=== PATIENT | male | born 1980 | race American Indian/Alaskan Native ===

== ENCOUNTER 2020-03-03 02:41 | Observation (INO) | payer OTHER ==
[2020-03-03] MEDS ORDERED: ASPIRIN 325 MG TAB PO ONE (02:53)
[2020-03-03 03:34] LABS: Basophils # (Auto) 0.1 K/mm3 (0.0-0.1); Basophils % (Auto) 1.4 % (0.0-1.8); Eosinophils # (Auto) 0.2 K/mm3 (0.0-0.4); Eosinophils % (Auto) 2.2 % (0.0-4.3); Hemoglobin 15.7 gm/dl (11.8-15.2); Lymphocytes # (Auto) 3.9 K/mm3 (1.2-5.4); Lymphocytes % (Auto) 44.1 % (13.4-35.0); Mean Corpuscular HGB Conc 33 % (32-34); Mean Corpuscular Volume 91 fl (84-94); Monocytes # (Auto) 0.9 K/mm3 (0.0-0.8); Monocytes % (Auto) 10.6 % (0.0-7.3); Platelet Count 333 K/mm3 (140-440); Red Blood Count 5.14 M/mm3 (3.65-5.03); Red Cell Distribution Width 12.8 % (13.2-15.2)
--- NOTE | 2020-03-03 03:36 | XRay Report ---
CHEST 2 VIEWS INDICATION / CLINICAL INFORMATION: MAIN: Chest Pain; SOB X 3 DAYS. COMPARISON: None available. FINDINGS: SUPPORT DEVICES: None. HEART / MEDIASTINUM: No significant abnormality. LUNGS / PLEURA: There is mild bilateral interstitial prominence. The appearance is most suggestive fo r some mild interstitial pulmonary edema. No focal area of consolidation within either lung. No large pleural effusion. No pneumothorax. ADDITIONAL FINDINGS: No significant additional findings. IMPRESSION: 1. Mild interstitial prominence most likely interstitial pulmonary edema. Please correlate clinically . Signer Name: Marcelle Iyer MD Signed: 03/03/2020 3:32 AM Workstation Name: [id number]
[2020-03-03 03:54] LABS: BUN/Creatinine Ratio 17; Blood Urea Nitrogen 22 mg/dL (9-20); Hemolysis Index 37
[2020-03-03] MEDS ORDERED: BENZONATATE 100 MG CAP PO ONE (07:44)
[2020-03-03] MEDS ORDERED: ASPIRIN 325 MG TAB ONE (07:48)
[2020-03-03] MEDS ORDERED: predniSONE 20 MG TAB PO ONE (07:55)
[2020-03-03] MEDS ORDERED: IPRATROPIUM/ALBUTEROL SULFATE 3 ML AMPUL.NEB IH ONE (07:55)
--- NOTE | 2020-03-03 08:54 | Emergency Department Report ---
ED Chest Pain HPI - General Chief Complaint: Chest Pain Stated Complaint: CHEST PAIN Time Seen by Provider: 03/03/20 07:37 Source: patient Mode of arrival: Ambulatory Limitations: No Limitations - History of Present Illness Initial Comments: This is a 39-year-old male nontoxic, well nourished in appearance, no acute signs of distress presents to the ED with c/o of chest pain, shortness of breathe, and cough. Patient describes productive cough as mucus production. Patient denies any sick contacts. Patient denies any recent travels, long car, recent hospital stays. Patient denies any calf pain or calf tenderness. Patient denies any radiation of pain. Patient denies any other upper respiratory symptoms. Patient denies any hemoptysis, fever, chills, nausea, vomiting, headache, stiff neck, numbness, tingling, abdominal pain. Patient denies pleuritic chest pain. Patient denies any recent surgeries or any sick contacts. Patient denies any drug allergies or significant PMH. MD Complaint: chest pain -: days(s) Pain Location: other (midsternum) Pain Radiation: none Severity: mild Severity scale (0 -10): 3 Quality: aching Consistency: constant Improves With: nothing Worsens With: nothing re: denies: nausea, vomting, diaphoresis, dyspnea, sense of impending doom Other Symptoms: cough. denies: fever, syncope, rash, acid taste in mouth, leg swelling, palpitations, burping Treatments Prior to Arrival: none Aspirin use within the Past 7 Days: (0) No - Related Data Allergies Allergy/AdvReac Type Severity Reaction Status Date / Time No Known Allergies Allergy Unverified 03/03/20 02:51 Heart Score - HEART Score History: Slightly suspicious EKG: Normal Age: < 45 Risk factors: No known risk factors Troponin: < normal limit HEART Score: 0 ED Review of Systems ROS: Stated complaint: CHEST PAIN Other details as noted in HPI Constitutional: denies: chills, fever Eyes: denies: eye pain, eye discharge, vision change ENT: congestion. denies: ear pain, throat pain Respiratory: cough, shortness of breath. denies: wheezing Cardiovascular: chest pain. denies: palpitations Endocrine: no symptoms reported Gastrointestinal: denies: abdominal pain, nausea, diarrhea Genitourinary: denies: urgency, dysuria Musculoskeletal: denies: back pain, joint swelling, arthralgia Skin: denies: rash, lesions Neurological: denies: headache, weakness, paresthesias Psychiatric: denies: anxiety, depression Hematological/Lymphatic: denies: easy bleeding, easy bruising ED Past Medical Hx - Surgical History Past Surgical History?: Yes Additional Surgical History: Willie HIP - Social History Smoking Status: Never Smoker Substance Use Type: None ED Physical Exam - General Limitations: No Limitations General appearance: alert, in no apparent distress - Head Head exam: Present: atraumatic, normocephalic - Eye Eye exam: Present: normal appearance - ENT ENT exam: Present: normal exam, normal orophraynx - Neck Neck exam: Present: normal inspection, full ROM. Absent: tenderness, meningismus, lymphadenopathy - Respiratory Respiratory exam: Present: other (crackles willie lobes). Absent: respiratory distress, wheezes, rales, rhonchi, stridor, chest wall tenderness, accessory muscle use, decreased breath sounds, prolonged expiratory - Cardiovascular Cardiovascular Exam: Present: regular rate, normal rhythm, tachycardia, normal heart sounds. Absent: irregular rhythm, systolic murmur, diastolic murmur, rubs, gallop - Extremities Exam Extremities exam: Present: normal inspection, full ROM - Back Exam Back exam: Present: normal inspection, full ROM - Neurological Exam Neurological exam: Present: alert, oriented X3, normal gait - Psychiatric Psychiatric exam: Present: normal affect, normal mood - Skin Skin exam: Present: warm, dry, intact, normal color. Absent: rash ED Course Vital Signs 03/03/20 02:46 Temperature 98.1 F Pulse Rate 103 H Respiratory 20 Rate Blood Pressure 132/94 O2 Sat by Pulse 94 Oximetry - Reevaluation(s) Reevaluation #1: 03/03/20 08:53 Patient is speaking in full sentences with no signs of distress noted. - Consultations Consultation #1: 03/03/20 09:08 Patient has been consulted with Dr. Llamas about patient history, physical exam, and labs/imagine studies and agrees for admission for acute CHF. RAINE score - Raine Score Age > 65: (0) No Aspirin use within the Past 7 Days: (0) No 3 or more CAD Risk Factors: (0) No 2 or more Angina events in past 24 hrs: (0) No Known CAD with more than 50% Stenosis: (0) No Elevated Cardiac Markers: (0) No ST Deviation Greater than 0.5mm: (0) No RAINE Score: 0 ED Medical Decision Making - Lab Data Result diagrams: 03/03/20 03:20 03/03/20 03:20 - EKG Data 03/03/20 09:13 Signed by . EKG shows sinus tachycardia 103 with multiple premature complex and left anterior enlargement. Otherwise no significant ST abnormalities. - Medical Decision Making This is a 39-year-old male that presents with acute CHF. Patient is currently stable and was examined by me. Patient was consulted with Dr. Llamas and agrees to admission. Patient is admitted with hospitalist Dr. Graf. Chest x- ray does show bilateral pulmonary edema. BNP is elevated. Otherwise labs are unremarkable. Patient is admitted for further evaluation and treatment. At time of admission, the patient does not seem toxic or ill in appearance. No acute signs of distress noted. Patient agrees to admission treatment plan of care. No further questions noted by the patient. Critical care attestation.: If time is entered above; I have spent that time in minutes in the direct care of this critically ill patient, excluding procedure time. ED Disposition Clinical Impression: Shortness of breath Acute CHF Qualifiers: Heart failure type: unspecified Qualified Code(s): I50.9 - Heart failure, unspecified Chest pain Qualifiers: Chest pain type: unspecified Qualified Code(s): R07.9 - Chest pain, unspecified Disposition: OP ADMIT IP TO THIS HOSP Is pt being admited?: Yes Condition: Stable Referrals: PRIMARY CARE, [Primary Care Provider] - 3-5 Days
[2020-03-03] MEDS ORDERED: FUROSEMIDE 40 MG/4 ML INJ IV ONE (11:33)
[2020-03-03] MEDS ORDERED: FUROSEMIDE 40 MG/4 ML INJ ONE (12:13)
[2020-03-03] MEDS ORDERED: diphenhydrAMINE 50 MG CAP PO PRN (23:49)
[2020-03-03] MEDS ORDERED: ACETAMINOPHEN 325 MG TAB PO PRN (23:50)
[2020-03-03] MEDS ORDERED: oxyCODONE /ACETAMINOPHEN 5-325MG TAB PO PRN (23:50)
[2020-03-03] MEDS ORDERED: METOCLOPRAMIDE 10 MG/2 ML INJ IV PRN (23:50)
[2020-03-03] MEDS ORDERED: ONDANSETRON 4 MG/2 ML INJ IV PRN (23:50)
[2020-03-03] MEDS ORDERED: HYDROmorphone 1 MG/1 ML INJ IV PRN (23:50)
[2020-03-04] MEDS: POTASSIUM CHLORIDE ER 20 MEQ TAB PO SCH ×2 (00:59→14:04)
[2020-03-04 04:51] LABS: Basophils # (Auto) 0.1 K/mm3 (0.0-0.1); Eosinophils % (Auto) 0.3 % (0.0-4.3); Monocytes # (Auto) 1.4 K/mm3 (0.0-0.8); Monocytes % (Auto) 12.3 % (0.0-7.3)
[2020-03-04 05:06] LABS: Basophils % (Auto) 0.6 % (0.0-1.8); Hematocrit 46.1 % (35.5-45.6); Hemoglobin 15.3 gm/dl (11.8-15.2); Lymphocytes # (Auto) 2.9 K/mm3 (1.2-5.4); Lymphocytes % (Auto) 24.7 % (13.4-35.0); Mean Corpuscular HGB Conc 33 % (32-34); Mean Corpuscular Volume 91 fl (84-94); Platelet Count 344 K/mm3 (140-440)
[2020-03-04 05:18] LABS: Alanine Aminotransferase 49 units/L (7-56); BUN/Creatinine Ratio 14; Blood Urea Nitrogen 18 mg/dL (9-20); Calcium 9.4 mg/dL (8.4-10.2); Hemolysis Index 8
[2020-03-04] MEDS: FUROSEMIDE 40 MG/4 ML INJ IV SCH ×2 (06:12→16:58)
[2020-03-04] MEDS ORDERED: REGADENOSON 0.4 MG/5 ML INJ IV ONE (09:00)
[2020-03-04] MEDS ORDERED: allopurinoL 100 MG TAB PO SCH (10:00)
[2020-03-04] MEDS ORDERED: FAMOTIDINE 20 MG TAB PO SCH (10:00)
--- NOTE | 2020-03-04 10:09 | Event Note ---
Date: 03/03/20 See H/p in reports Chest pain R/o [place] CHF
--- NOTE | 2020-03-04 10:34 | History and Physical Report ---
CHIEF COMPLAINT: Chest pain for 1 day. HISTORY OF PRESENT ILLNESS: A 39-year-old male with history of hypertension, comes in for left-sided chest pain and retrosternal chest pain. Also, he has some difficulty in breathing. Also, cough productive of mucoid sputum. No fever or chills. No recent exposure. Chest pain is not associated with any diaphoresis or palpitations. No exacerbating or relieving factors. Chest pain is about 5 on a scale of 1-10. No recent cardiac cath or a stress test. PAST MEDICAL HISTORY: hypertension. PAST SURGICAL HISTORY: Bilateral hip surgeries. SOCIAL HISTORY: Does not smoke. FAMILY HISTORY: Hypertension. REVIEW OF SYSTEMS: Significant for chest pain and shortness of breath. PHYSICAL EXAMINATION: GENERAL: Young male, cooperative during examination. VITAL SIGNS: Blood pressure is 147/95, temperature is 98, pulse is 101, respirations are 26. HEENT: Unremarkable. Pupils equal and reactive. NECK: Supple, no lymphadenopathy, no thyromegaly. LUNGS: Clear to auscultation and percussion. Good air entry. CARDIOVASCULAR: S1, S2 heard. No gallop, no murmur, no rub. Apical impulse in left fifth intercostal space and midclavicular line. ABDOMEN: Soft and benign. No hepatosplenomegaly, no guarding, no rigidity. Hernial orifices are normal. EXTREMITIES: Good pedal pulses. No pedal edema. CENTRAL NERVOUS SYSTEM: Alert and oriented x 4, nonfocal exam. LABORATORY DATA: Significant for white count of 8,800, H and H is 15.7 and 47.0, BUN is 23, creatinine is 1.3. BNP is 1998. EKG shows sinus tachycardia, heart rate of 108. Chest x-ray shows mild interstitial prominence, most likely interstitial pulmonary edema. ASSESSMENT AND PLAN: 1. Chest pain, rule out myocardial infarction protocol. Serial troponins and stress test. 2. Congestive heart failure exacerbation, new onset congestive heart failure. We will get echocardiogram for ejection fraction. IV Lasix in the meantime. 3. Hypertension. Continue antihypertensives. 4. Deep venous thrombosis prophylaxis, heparin 5000 q. 12. 5. Morbid obesity: Patient counseled about bariatric surgery and losing weight. Patient to follow with outpatient [id number] JOB# [id number] [facility]
[2020-03-04] MEDS ORDERED: PNEUMOCOCCAL 23 Valent 0.5 ML VIAL IM ONE (12:00)
[2020-03-04] MEDS ORDERED: FLU VACC QUAD 2019-20 (3 YR UP)/PF 60 MCG/0.5 ML SYRINGE IM ONE (12:00)
[2020-03-04 15:47] VITALS: BP 101/69
--- NOTE | 2020-03-04 18:00 | Discharge Summary ---
Providers - Providers Date of Admission: 03/03/20 11:32 Date of discharge: 03/04/20 Attending physician: JOSE M Lui Primary care physician: NETEZZA ARCHITECT Hospitalization Condition: Stable Pertinent studies: Stress test was negative. Echocardiogram showed 40% ejection fraction. Hospital course: Patient was admitted for chest pain and CHF exacerbation Patient did well with Lasix and potassium. Patient had good urinary output. Patient had echocardiogram which showed 40 to 40% of ejection fraction. Patient had a stress test which was negative for ischemia. Patient had uneventful course. Patient being discharged on Lasix 40 mg p.o. daily Potassium 20 mg p.o. daily and to follow-up with [facility]. Patient also has morbid obesity and was counseled. Patient to follow-up with Dr. Pierson the bariatric surgeon. Disposition: DC- TO HOME OR SELFCARE Time spent for discharge: 35 minutes. Core Measure Documentation - Palliative Care Palliative Care/ Comfort Measures: Not Applicable - Core Measures Any of the following diagnoses?: heart failure - Heart Failure Discharge Requirements ELIS/ARB for LVSD if EF <40%: Yes Beta ada at discharge: Yes Exam - Constitutional Vitals: Temp Pulse Resp BP Pulse Ox 98.4 F 104 H 20 101/69 95 03/04/20 15:46 03/04/20 15:46 03/04/20 15:46 03/04/20 15:46 03/04/20 15:46 General appearance: Present: no acute distress, well-nourished - EENT Eyes: Present: PERRL ENT: hearing intact, clear oral mucosa - Neck Neck: Present: supple, normal ROM - Respiratory Respiratory effort: normal Respiratory: bilateral: CTA - Cardiovascular Heart rate: 78 Rhythm: regular Heart Sounds: Present: S1 & S2. Absent: rub, click - Extremities Extremities: no ischemia, pulses symmetrical, No edema Peripheral Pulses: within normal limits - Abdominal General gastrointestinal: Present: soft, non-tender, non-distended, normal bowel sounds Male genitourinary: Present: normal - Integumentary Integumentary: Present: clear, warm, dry - Musculoskeletal Musculoskeletal: gait normal, strength equal bilaterally - Psychiatric Psychiatric: appropriate mood/affect, intact judgment & insight - Neurologic Neurologic: CNII-XII intact, moves all extremities - Allied Health Allied health notes reviewed: nursing, case management Plan Activity: no restrictions Diet: low salt Follow up with: PRIMARY CARE, [Primary Care Provider] - 3-5 Days TIKI LUI MD [Staff Physician] - 7 Days DAMON JENNINGS MD [Staff Physician] - 7 Days Prescriptions: HYDROcodone/ACETAMINOPHEN 10 mg PO DAILY #20 Potassium Chloride [K-Dur] 20 meq PO QDAY #30 tablet Furosemide [Lasix TAB] 40 mg PO QDAY #30 tablet allopurinoL [Zyloprim] 100 tab PO DAILY #30 MDD 100MG
[2020-03-04] MEDS ORDERED: LURASIDONE HCL 40 MG PO SCH (22:00)
== END 2020-03-04 18:48 | disposition home or self-care (01) ==
LOC: ED 02:41 → INTOOBSV 11:32 → 4A 11:32
PROVIDERS: ADMIT Internal Medicine; ATTEND Internal Medicine
DX: I11.0 Hypertensive heart disease with heart failure (principal); I50.9 Heart failure, unspecified; E66.01 Morbid (severe) obesity due to excess calories; Z79.899 Other long term (current) drug therapy; Z68.43 Body mass index [BMI] 50.0-59.9, adult; Z23 Encounter for immunization
CPT/HCPCS: 36415; 71046; 80048; 80053; 83036; 83880; 84484; 85025; 90471; 90472; 90686; 90732; 93005; 93017; 93306; 96374; 96376; 99285; G0378; J1940; J7512